=== PATIENT | male | born 1965 | race Caucasian/White ===

== ENCOUNTER 2016-06-22 13:14 | Emergency (ER) | payer SELFPAY ==
[~2016-06-22] VITALS: Ht 175.3 cm; Wt 104.0 kg
[2016-06-22] MEDS ORDERED: IBUPROFEN 600MG TABLET PO NR (16:00)
[2016-06-22 16:14] VITALS: BP 124/80
== END 2016-06-22 16:24 | disposition home or self-care (01) ==
LOC: ER 14:06
DX: S93.402A Sprain of unspecified ligament of left ankle, initial encounter (principal); E11.9 Type 2 diabetes mellitus without complications; Z90.49 Acquired absence of other specified parts of digestive tract; W01.0XXA Fall on same level from slipping, tripping and stumbling without subsequent striking against object, initial encounter; Y93.89 Activity, other specified; Y92.9 Unspecified place or not applicable; Y99.8 Other external cause status
CPT/HCPCS: 73610; 99284; Z7610

== ENCOUNTER 2023-04-06 06:56 | Emergency (ER) | payer BC, OTHER ==
[~2023-04-06] VITALS: Ht 180.3 cm; Wt 86.2 kg
[2023-04-06 07:55] VITALS: O2SAT 96
[2023-04-06] MEDS ORDERED: ACYC200C31 MT (09:48)
[2023-04-06 10:02] VITALS: BP 108/64; PULSE 67; RESP 16; TEMP 98.2
== END 2023-04-06 10:03 | disposition home or self-care (01) ==
LOC: ER 06:56
DX: B00.9 Herpesviral infection, unspecified (principal); F15.10 Other stimulant abuse, uncomplicated; E11.9 Type 2 diabetes mellitus without complications; Z90.49 Acquired absence of other specified parts of digestive tract
CPT/HCPCS: 99283